=== PATIENT | female | born 1980 | race Caucasian/White ===

== ENCOUNTER → 2017-03-30 | Outpatient (CLI) | payer OTHER ==
[2017-03-30 11:16] LABS: Anisocytosis Moderate; Basophils % (A) 1 %; Eosinophils # (A) 0.1 k/uL (0-0.7); Eosinophils % (A) 2 %; HCT 40.3 % (34.0-46.0); HGB 12.3 gm/dL (11.4-16.0); Hypochromasia Moderate; Lymphocytes # (A) 1.4 k/uL (1.0-4.8); Lymphocytes % (A) 20 %; MCH 24.8 pg (25.0-35.0); MCHC 30.4 g/dL (31.0-37.0); MCV 81.7 fL (80.0-100.0); Mean Platelet Volume 7.3; Microcytosis Moderate; Monocytes # (A) 0.4 k/uL (0-1.0); Monocytes % (A) 6 %; Neutrophils # (A) 4.6 k/uL (1.3-7.7); Neutrophils % (A) 68 %; Platelet Count 345 k/uL (150-450); RBC 4.94 m/uL (3.80-5.40); RDW 21.2 % (11.5-15.5); WBC 6.8 k/uL (3.8-10.6)
[2017-03-30 11:48] LABS: ALT 23 U/L (9-52); AST 19 U/L (14-36); Albumin 4.3 g/dL (3.5-5.0); Alkaline Phosphatase 89 U/L (38-126); Anion Gap 12 mmol/L; Blood Urea Nitrogen 16 mg/dL (7-17); Calcium 9.8 mg/dL (8.4-10.2); Carbon Dioxide 27 mmol/L (22-30); Chloride 102 mmol/L (98-107); Cholesterol 221 mg/dL (<200); Glucose 90 mg/dL (74-99); HDL Cholesterol 77 mg/dL (40-60); LDL Cholesterol,Calculated 102 mg/dL (0-99); Potassium 3.8 mmol/L (3.5-5.1); Sodium 141 mmol/L (137-145); Total Bilirubin 0.5 mg/dL (0.2-1.3); Total Protein 7.6 g/dL (6.3-8.2); Triglycerides 210 mg/dL (<150)
== END | disposition home or self-care (01) ==
LOC: LABWHC1 09:46
PROVIDERS: ATTEND Nurse Practitioner
DX: D50.8 Other iron deficiency anemias (principal); E03.9 Hypothyroidism, unspecified; Z13.1 Encounter for screening for diabetes mellitus; Z13.220 Encounter for screening for lipoid disorders
CPT/HCPCS: 36415; 80053; 80061; 84443; 85025

== ENCOUNTER 2017-04-17 09:52 | Emergency (ER) | payer OTHER ==
[2017-04-17 10:21] VITALS: RESP 20
[2017-04-17] MEDS ORDERED: ONDANSETRON 4 MG/2 ML VIAL IVP STA (10:33)
[2017-04-17] MEDS ORDERED: SODIUM CHLORIDE 0.9% 1,000 ML IV ONE ×2 (10:33)
[2017-04-17] MEDS ORDERED: KETOROLAC 30 MG/ML 1 ML VIAL IVP STA (10:33)
[2017-04-17 11:37] LABS: Anisocytosis Slight; Basophils % (A) 0 %; Eosinophils # (A) 0.1 k/uL (0-0.7); Eosinophils % (A) 2 %; HCT 37.4 % (34.0-46.0); Hypochromasia Slight; Lymphocytes # (A) 1.5 k/uL (1.0-4.8); Lymphocytes % (A) 21 %; MCH 25.7 pg (25.0-35.0); MCHC 32.1 g/dL (31.0-37.0); MCV 80.2 fL (80.0-100.0); Mean Platelet Volume 6.7; Microcytosis Slight; Monocytes # (A) 0.4 k/uL (0-1.0); Monocytes % (A) 5 %; Neutrophils # (A) 4.9 k/uL (1.3-7.7); Neutrophils % (A) 69 %; Platelet Count 370 k/uL (150-450); Poikilocytosis Slight; RBC 4.66 m/uL (3.80-5.40); RDW 16.5 % (11.5-15.5); WBC 7.1 k/uL (3.8-10.6)
[2017-04-17 11:45] LABS: Anion Gap 10 mmol/L; Blood Urea Nitrogen 12 mg/dL (7-17); Calcium 9.3 mg/dL (8.4-10.2); Carbon Dioxide 27 mmol/L (22-30); Chloride 106 mmol/L (98-107); Glucose 84 mg/dL (74-99); Potassium 3.7 mmol/L (3.5-5.1); Sodium 143 mmol/L (137-145)
[2017-04-17 11:48] LABS: Partial Thromboplastin Time 23.5 sec (22.0-30.0); Prothrombin Time 9.5 sec (9.0-12.0)
--- NOTE | 2017-04-17 11:56 | ED ---
General Adult HPI - General Chief complaint: Vaginal Bleeding Stated complaint: Vag Bleeding Time Seen by Provider: 04/17/17 10:27 Source: patient Mode of arrival: ambulatory Limitations: no limitations - History of Present Illness Initial comments: This 36-year-old white female presents with a complaint of vaginal bleeding. She states that this started on 03/30/2017. It has progressively worsened. She states that she now is going through approximately 5 pads per hour. She has felt somewhat lightheaded, nauseated, dizzy, and fatigue. She apparently was sent in by her primary care physician for further evaluation. She was seen in the emergency department last week at [facility]. She states that she had a computed tomography scan of her abdomen and pelvis at that time which did not show any overt significant abnormalities. It apparently showed that she may have a very small ovarian cyst but she denies it showing any fibroids. She does not have an FUNCTIONAL MENTAL DISABILITY TEACHER at this time and has not followed up with FUNCTIONAL MENTAL DISABILITY TEACHER. She also complains of some midline lower abdominal pain/cramping. She denies any urinary symptoms. There has been no fevers or chills. She does relate that she has a history of iron deficiency anemia and will have iron infusions intravenously at times. - Related Data Home Medications Medication Instructions Recorded Confirmed Acetaminophen Tab [Tylenol Tab] 500 mg PO Q6HR PRN 04/17/17 04/17/17 Aspirin 325 mg PO QID PRN 04/17/17 04/17/17 Hydrochlorothiazide [Hydrodiuril] 25 mg PO DAILY 04/17/17 04/17/17 Levothyroxine Sodium [Synthroid] 100 mcg PO SUTUTHSA 04/17/17 04/17/17 Levothyroxine Sodium [Synthroid] 200 mcg PO MOWEFR 04/17/17 04/17/17 Naltrexone HCl/Bupropion HCl 2 tab PO BID 04/17/17 04/17/17 [Contrave ER 8-90 mg Tablet] Allergies Allergy/AdvReac Type Severity Reaction Status Date / Time No Known Allergies Allergy Verified 04/17/17 10:39 Review of Systems ROS Statement: Those systems with pertinent positive or pertinent negative responses have been documented in the HPI. ROS Other: All systems not noted in ROS Statement are negative. Past Medical History Past Medical History: Cancer Additional Past Medical History / Comment(s): cervical ca History of Any Multi-Drug Resistant Organisms: None Reported Past Surgical History: Tubal Ligation Past Psychological History: No Psychological Hx Reported Smoking Status: Never smoker Past Alcohol Use History: Rare Past Drug Use History: None Reported General Exam - General Exam Comments Initial Comments: GENERAL: The patient is well nourished and well hydrated. VITAL SIGNS: Heart rate, blood pressure, respiratory rate reviewed as recorded in nurse's notes. EYES: Pupils are round and reactive. Extraocular movements are intact. No conjunctival / lid redness or swelling. ENT: No external evidence of injury, swelling, or ecchymosis. Airway is patent. Throat is clear. NECK: Nontender. No swelling or evidence of injury. No subcutaneous emphysema. Trachea is midline. No thyroid mass. HEART: Regular rate and rhythm. Good peripheral pulses. LUNGS/CHEST: Breath sounds clear and equal bilaterally. No rales, rhonchi, or wheezes. No ecchymosis, subcutaneous emphysema, or tenderness. ABDOMEN: There is some mild tenderness in the midline lower abdomen. No palpable masses or organomegaly. No peritoneal signs. No abdominal wall swelling or ecchymosis. EXTREMITIES: No extremity tenderness. Normal muscle tone and function. No thoracolumbar tenderness. NEUROLOGIC: Sensation is grossly intact. Cranial nerve exam reveals face is symmetrical, tongue is midline, speech is clear. SKIN: No abrasions or ecchymosis is noted. No induration or masses noted. PSYCHIATRIC: Alert and oriented. Appropriate behavior and judgment. Limitations: no limitations Course Vital Signs 04/17/17 10:15 Temperature 98.1 F Pulse Rate 86 Respiratory 20 Rate Blood Pressure 121/70 O2 Sat by Pulse 100 Oximetry Medical Decision Making - Medical Decision Making The patient was seen and examined. All diagnostics were reviewed. An IV is started and she is hydrated. The laboratory is reviewed and appears that her hemoglobin is stable at 12. The remainder of the labs are unremarkable. The urinalysis does show significant hematuria. There is a significant amount of red blood cells and white blood cells. It is felt as though this is due to her heavy vaginal bleeding. There is no signs of a UTI. The pelvic ultrasound shows a right 2.7 cm ovarian cyst. The left ovary is not visualized. There is no evidence of torsion. The endometrium is normal in appearance and there is no evidence of fibroids. The case is discussed with Dr. Santos and she does not recommend starting her on any medication at this time but would like her to follow up in approximately 5 days. The patient appears stable for follow-up. She is feeling somewhat improved on recheck. She requests a work note for today and tomorrow and this is given. - Lab Data Result diagrams: 04/17/17 11:17 04/17/17 11:17 Lab Results 04/17/17 04/17/17 04/17/17 Range/Units 11:00 11:00 11:17 WBC 7.1 (3.8-10.6) k/uL RBC 4.66 (3.80-5.40) m/uL Hgb 12.0 (11.4-16.0) gm/dL Hct 37.4 (34.0-46.0) % MCV 80.2 (80.0-100.0) fL MCH 25.7 (25.0-35.0) pg MCHC 32.1 (31.0-37.0) g/dL RDW 16.5 H (11.5-15.5) % Plt Count 370 (150-450) k/uL Neutrophils % 69 % Lymphocytes % 21 % Monocytes % 5 % Eosinophils % 2 % Basophils % 0 % Neutrophils # 4.9 (1.3-7.7) k/uL Lymphocytes # 1.5 (1.0-4.8) k/uL Monocytes # 0.4 (0-1.0) k/uL Eosinophils # 0.1 (0-0.7) k/uL Basophils # 0.0 (0-0.2) k/uL Hypochromasia Slight Poikilocytosis Slight Anisocytosis Slight Microcytosis Slight PT (9.0-12.0) sec INR (<1.2) APTT (22.0-30.0) sec Sodium (137-145) mmol/L Potassium (3.5-5.1) mmol/L Chloride (98-107) mmol/L Carbon Dioxide (22-30) mmol/L Anion Gap mmol/L BUN (7-17) mg/dL Creatinine (0.52-1.04) mg/dL Est GFR (MDRD) Af Amer (>60 ml/min/1.73 sqM) Est GFR (MDRD) Non-Af (>60 ml/min/1.73 sqM) Glucose (74-99) mg/dL Calcium (8.4-10.2) mg/dL Urine Color Red Urine Appearance Bloody H (Clear) Urine pH 6.0 (5.0-8.0) Ur Specific [place] 1.016 (1.001-1.035) Urine Protein 1+ H (Negative) Urine Glucose (UA) Negative (Negative) Urine Ketones Trace H (Negative) Urine Blood Large H (Negative) Urine Nitrite Negative (Negative) Urine Bilirubin Negative (Negative) Urine Urobilinogen <2.0 (<2.0) mg/dL Ur Leukocyte Esterase Moderate (Negative) Urine RBC >182 H (0-5) /hpf Urine WBC >182 H (0-5) /hpf Urine HCG, Qual Not Detected (Not Detectd) Blood Type Blood Type Recheck Antibody Screen Spec Expiration Date 04/17/17 04/17/17 04/17/17 Range/Units 11:17 11:17 11:17 WBC (3.8-10.6) k/uL RBC (3.80-5.40) m/uL Hgb (11.4-16.0) gm/dL Hct (34.0-46.0) % MCV (80.0-100.0) fL MCH (25.0-35.0) pg MCHC (31.0-37.0) g/dL RDW (11.5-15.5) % Plt Count (150-450) k/uL Neutrophils % % Lymphocytes % % Monocytes % % Eosinophils % % Basophils % % Neutrophils # (1.3-7.7) k/uL Lymphocytes # (1.0-4.8) k/uL Monocytes # (0-1.0) k/uL Eosinophils # (0-0.7) k/uL Basophils # (0-0.2) k/uL Hypochromasia Poikilocytosis Anisocytosis Microcytosis PT 9.5 (9.0-12.0) sec INR 1.0 (<1.2) APTT 23.5 (22.0-30.0) sec Sodium 143 (137-145) mmol/L Potassium 3.7 (3.5-5.1) mmol/L Chloride 106 (98-107) mmol/L Carbon Dioxide 27 (22-30) mmol/L Anion Gap 10 mmol/L BUN 12 (7-17) mg/dL Creatinine 0.59 (0.52-1.04) mg/dL Est GFR (MDRD) Af Amer >60 (>60 ml/min/1.73 sqM) Est GFR (MDRD) Non-Af >60 (>60 ml/min/1.73 sqM) Glucose 84 (74-99) mg/dL Calcium 9.3 (8.4-10.2) mg/dL Urine Color Urine Appearance (Clear) Urine pH (5.0-8.0) Ur Specific [place] (1.001-1.035) Urine Protein (Negative) Urine Glucose (UA) (Negative) Urine Ketones (Negative) Urine Blood (Negative) Urine Nitrite (Negative) Urine Bilirubin (Negative) Urine Urobilinogen (<2.0) mg/dL Ur Leukocyte Esterase (Negative) Urine RBC (0-5) /hpf Urine WBC (0-5) /hpf Urine HCG, Qual (Not Detectd) Blood Type O Positive Blood Type Recheck No Antibody Screen NEGATIVE Spec Expiration Date 04/20/20172316 Disposition Clinical Impression: Dysfunctional uterine bleeding, Abdominal pain, Lightheadedness Disposition: HOME SELF-CARE Condition: Good Instructions: Dysfunctional Uterine Bleeding (ED), Abdominal Pain (ED) Referrals: Immanuel Howell MD [Primary Care Provider] - 1-2 days Ximena Santos MD [STAFF PHYSICIAN] - 04/23/17 Time of Disposition: 13:01
[2017-04-17 12:01] LABS: Appearance,Urine Bloody (Clear); Bilirubin,Urine Negative (Negative); Blood,Urine Large (Negative); Color,Urine Red; Glucose,Urine (UA) Negative (Negative); Ketones,Urine Trace (Negative); Protein,Urine 1+ (Negative); Specific Gravity,Urine 1.016 (1.001-1.035)
[2017-04-17 12:02] LABS: Leukocyte Esterase,Urine Moderate (Negative); Nitrite,Urine Negative (Negative); Urobilinogen,Urine <2.0 mg/dL (<2.0)
[2017-04-17 12:04] LABS: RBC,Urine >182 /hpf (0-5); WBC,Urine >182 /hpf (0-5)
--- NOTE | 2017-04-17 12:05 | US ---
EXAMINATION TYPE: US transvaginal DATE OF EXAM: 04/17/2017 COMPARISON: NONE CLINICAL HISTORY: vaginal bleeding and pelvic pain. TECHNIQUE: Transvaginal (TV) Date of LMP: 03/30/17 EXAM MEASUREMENTS: Uterus: 8.6 x 4.8 x 6.1 cm Endometrial Stripe: 0.6 cm Right Ovary: 3.8 x 2.7 x 2.5 cm Left Ovary: Obscured by overlying bowel gas 1. Uterus: multiple nabothians noted in cx, anteverted 2. Endometrium: wnl 3. Right Ovary: cyst measuring 2.7 x 2.6 x 2.4 4. Left Ovary: Obscured by overlying bowel gas Spectral, color and waveform doppler imaging shows good arterial and venous flow within the right o vary; there is no evidence for ovarian torsion on right. 5. Bilateral Adnexa: wnl 6. Posterior cul-de-sac: wnl IMPRESSION: 1. Right ovarian cystic lesion with internal echoes. Follow-up study recommended in 6 weeks. 2. Endometrial stripe and uterus are within normal limits.
[2017-04-17 13:11] VITALS: BP 120/56; PULSE 80; TEMP 98
== END 2017-04-17 13:10 | disposition home or self-care (01) ==
LOC: EC 09:52
DX: N83.201 Unspecified ovarian cyst, right side (principal); R42 Dizziness and giddiness; R11.0 Nausea; Z85.41 Personal history of malignant neoplasm of cervix uteri; Z79.899 Other long term (current) drug therapy
CPT/HCPCS: 36415; 86900; 86901; 80048; 85025; 85610; 85730; 86850; 81001; 81025; 93976; 76830; 99284; 96374; 96375; 96361 ×2; J2405; J1885

== ENCOUNTER 2017-07-27 23:27 | Emergency (ER) | payer OTHER ==
[2017-07-27] MEDS ORDERED: ONDANSETRON 4 MG/2 ML VIAL IVP STA (23:47)
[2017-07-27] MEDS ORDERED: MORPHINE SULFATE 4 MG/ML SYRINGE IV STA (23:47)
--- NOTE | 2017-07-27 23:51 | ED ---
Abdominal Pain HPI - General Chief Complaint: Abdominal Pain Stated Complaint: Lt flank pain, chest pain, back pain Time Seen by Provider: 07/27/17 23:33 Source: patient Mode of arrival: ambulatory Limitations: no limitations - History of Present Illness Initial Comments: This patient is a 37-year-old woman who complains of having left flank pain that is been going on she believes since Sunday. Patient states that the pain has become more intense and now she rates it severe. Pain is constant. It is located in the left upper quadrant but she states she also feels towards the back. She is indicating the area at the costal margin. The patient states that the pain gets worse when she touches that area. She denies relieving factors. She does note that she has had 2 episodes of vomiting today, she also has had loose stools. When questioned about urination, patient states that she does have some pain with urination. She has not noted any color change. Finally, the patient states she has noticed a lump which has developed just below the left breast and is tender. MD Complaint: abdominal pain -: days(s) Location: LUQ Radiation: L flank Migration to: no migration Severity: severe Quality: aching Consistency: constant Improves With: nothing Worsens With: movement, other (palpation) Associated Symptoms: nausea, vomiting, dysuria - Related Data Home Medications Medication Instructions Recorded Confirmed Hydrochlorothiazide [Hydrodiuril] 25 mg PO DAILY 04/17/17 07/27/17 Levothyroxine Sodium [Synthroid] 100 mcg PO SUTUTHSA 04/17/17 07/27/17 Previous Rx's Medication Instructions Recorded Hydrocodone/Acetaminophen [[place] 1 each PO Q6HR PRN #12 tab 07/28/17 5-325] Allergies Allergy/AdvReac Type Severity Reaction Status Date / Time No Known Allergies Allergy Verified 07/27/17 23:37 Review of Systems ROS Statement: Those systems with pertinent positive or pertinent negative responses have been documented in the HPI. ROS Other: All systems not noted in ROS Statement are negative. Constitutional: Denies: fever, chills Respiratory: Reports: cough. Denies: dyspnea, wheezes, hemoptysis Cardiovascular: Denies: chest pain, palpitations, edema Gastrointestinal: Reports: abdominal pain, nausea, vomiting, diarrhea. Denies: constipation, melena, hematochezia Genitourinary: Reports: dysuria. Denies: frequency, hematuria, discharge Musculoskeletal: Denies: back pain Skin: Denies: rash Neurological: Denies: headache Past Medical History Past Medical History: Cancer Additional Past Medical History / Comment(s): cervical ca History of Any Multi-Drug Resistant Organisms: None Reported Past Surgical History: Tubal Ligation Past Psychological History: No Psychological Hx Reported Smoking Status: Never smoker Past Alcohol Use History: Rare Past Drug Use History: None Reported General Exam Limitations: no limitations General appearance: alert, other (Patient appears in pain related to the left upper abdomen) Head exam: Present: atraumatic Respiratory exam: Present: normal lung sounds bilaterally, chest wall tenderness (There is tenderness along the ribs at the costal margin on the left) . Absent: respiratory distress, wheezes, rales, rhonchi, stridor Cardiovascular Exam: Present: normal rhythm, tachycardia, normal heart sounds. Absent: systolic murmur, diastolic murmur, rubs, gallop GI/Abdominal exam: Present: soft, tenderness (There is moderate tenderness to the left upper quadrant along the costal margin.), guarding, normal bowel sounds. Absent: distended, rebound, rigid, mass, pulsatile mass, hernia Extremities exam: Present: normal inspection, normal capillary refill. Absent: pedal edema, calf tenderness Back exam: Present: normal inspection. Absent: CVA tenderness (R), CVA tenderness (L) Neurological exam: Present: alert Skin exam: Present: warm, dry, intact, normal color. Absent: rash Course Vital Signs 07/27/17 07/28/17 23:29 00:59 Temperature 98.1 F 98.4 F Pulse Rate 123 H 90 Respiratory 20 16 Rate Blood Pressure 150/77 112/55 O2 Sat by Pulse 99 98 Oximetry Medical Decision Making - Lab Data Result diagrams: 07/27/17 23:40 07/27/17 23:40 Lab Results 07/27/17 07/27/17 07/27/17 Range/Units 23:40 23:40 23:40 WBC 8.3 (3.8-10.6) k/uL RBC 4.64 (3.80-5.40) m/uL Hgb 11.5 (11.4-16.0) gm/dL Hct 35.3 (34.0-46.0) % MCV 76.1 L (80.0-100.0) fL MCH 24.8 L (25.0-35.0) pg MCHC 32.6 (31.0-37.0) g/dL RDW 15.5 (11.5-15.5) % Plt Count 457 H (150-450) k/uL Neutrophils % 63 % Lymphocytes % 27 % Monocytes % 5 % Eosinophils % 2 % Basophils % 0 % Neutrophils # 5.2 (1.3-7.7) k/uL Lymphocytes # 2.2 (1.0-4.8) k/uL Monocytes # 0.4 (0-1.0) k/uL Eosinophils # 0.1 (0-0.7) k/uL Basophils # 0.0 (0-0.2) k/uL Microcytosis Slight D-Dimer (<0.60) mg/L FEU Sodium 146 H (137-145) mmol/L Potassium 3.5 (3.5-5.1) mmol/L Chloride 105 (98-107) mmol/L Carbon Dioxide 23 (22-30) mmol/L Anion Gap 18 mmol/L BUN 12 (7-17) mg/dL Creatinine 0.70 (0.52-1.04) mg/dL Est GFR (CKD-EPI)AfAm >90 (>60 ml/min/1.73 sqM) Est GFR (CKD-EPI)NonAf >90 (>60 ml/min/1.73 sqM) Glucose 91 (74-99) mg/dL Calcium 10.0 (8.4-10.2) mg/dL Total Bilirubin 0.3 (0.2-1.3) mg/dL AST 23 (14-36) U/L ALT 12 (9-52) U/L Alkaline Phosphatase 100 (38-126) U/L Troponin I <0.012 (0.000-0.034) ng/mL Total Protein 7.7 (6.3-8.2) g/dL Albumin 4.5 (3.5-5.0) g/dL Amylase 45 (30-110) U/L Lipase 93 (23-300) U/L Urine Color Urine Appearance (Clear) Urine pH (5.0-8.0) Ur Specific [place] (1.001-1.035) Urine Protein (Negative) Urine Glucose (UA) (Negative) Urine Ketones (Negative) Urine Blood (Negative) Urine Nitrite (Negative) Urine Bilirubin (Negative) Urine Urobilinogen (<2.0) mg/dL Ur Leukocyte Esterase (Negative) Urine HCG, Qual (Not Detectd) 07/27/17 07/27/17 07/27/17 Range/Units 23:40 23:40 23:40 WBC (3.8-10.6) k/uL RBC (3.80-5.40) m/uL Hgb (11.4-16.0) gm/dL Hct (34.0-46.0) % MCV (80.0-100.0) fL MCH (25.0-35.0) pg MCHC (31.0-37.0) g/dL RDW (11.5-15.5) % Plt Count (150-450) k/uL Neutrophils % % Lymphocytes % % Monocytes % % Eosinophils % % Basophils % % Neutrophils # (1.3-7.7) k/uL Lymphocytes # (1.0-4.8) k/uL Monocytes # (0-1.0) k/uL Eosinophils # (0-0.7) k/uL Basophils # (0-0.2) k/uL Microcytosis D-Dimer 0.41 (<0.60) mg/L FEU Sodium (137-145) mmol/L Potassium (3.5-5.1) mmol/L Chloride (98-107) mmol/L Carbon Dioxide (22-30) mmol/L Anion Gap mmol/L BUN (7-17) mg/dL Creatinine (0.52-1.04) mg/dL Est GFR (CKD-EPI)AfAm (>60 ml/min/1.73 sqM) Est GFR (CKD-EPI)NonAf (>60 ml/min/1.73 sqM) Glucose (74-99) mg/dL Calcium (8.4-10.2) mg/dL Total Bilirubin (0.2-1.3) mg/dL AST (14-36) U/L ALT (9-52) U/L Alkaline Phosphatase (38-126) U/L Troponin I (0.000-0.034) ng/mL Total Protein (6.3-8.2) g/dL Albumin (3.5-5.0) g/dL Amylase (30-110) U/L Lipase (23-300) U/L Urine Color Colorless Urine Appearance Clear (Clear) Urine pH 5.5 (5.0-8.0) Ur Specific [place] 1.003 (1.001-1.035) Urine Protein Negative (Negative) Urine Glucose (UA) Negative (Negative) Urine Ketones Negative (Negative) Urine Blood Negative (Negative) Urine Nitrite Negative (Negative) Urine Bilirubin Negative (Negative) Urine Urobilinogen <2.0 (<2.0) mg/dL Ur Leukocyte Esterase Negative (Negative) Urine HCG, Qual Not Detected (Not Detectd) Disposition Clinical Impression: Left-sided chest wall pain, Cyst Disposition: HOME SELF-CARE Condition: Good Instructions: Cyst (ED) Prescriptions: Hydrocodone/Acetaminophen [[place] 5-325] 1 each PO Q6HR PRN #12 tab PRN Reason: Pain Is patient prescribed a controlled substance at d/c from ED?: Yes If prescribed controlled substance>3 days was MAPS reviewed?: Yes When asked, does pt state using other controlled substances?: No Referrals: Immanuel Howell MD [Primary Care Provider] - 1-2 days Celestino James MD [STAFF PHYSICIAN] - 1-2 days
[2017-07-27 23:58] LABS: Basophils % (A) 0 %; Eosinophils # (A) 0.1 k/uL (0-0.7); Eosinophils % (A) 2 %; HCT 35.3 % (34.0-46.0); HGB 11.5 gm/dL (11.4-16.0); Lymphocytes # (A) 2.2 k/uL (1.0-4.8); Lymphocytes % (A) 27 %; MCH 24.8 pg (25.0-35.0); MCHC 32.6 g/dL (31.0-37.0); MCV 76.1 fL (80.0-100.0); Mean Platelet Volume 6.8; Microcytosis Slight; Monocytes # (A) 0.4 k/uL (0-1.0); Monocytes % (A) 5 %; Neutrophils # (A) 5.2 k/uL (1.3-7.7); Neutrophils % (A) 63 %; Platelet Count 457 k/uL (150-450); RBC 4.64 m/uL (3.80-5.40); RDW 15.5 % (11.5-15.5); WBC 8.3 k/uL (3.8-10.6)
[2017-07-27 23:59] LABS: Appearance,Urine Clear (Clear); Bilirubin,Urine Negative (Negative); Blood,Urine Negative (Negative); Color,Urine Colorless; Glucose,Urine (UA) Negative (Negative); Ketones,Urine Negative (Negative); Leukocyte Esterase,Urine Negative (Negative); Nitrite,Urine Negative (Negative); PH, Urine 5.5 (5.0-8.0); Protein,Urine Negative (Negative); Specific Gravity,Urine 1.003 (1.001-1.035); Urobilinogen,Urine <2.0 mg/dL (<2.0)
[2017-07-28 00:08] LABS: ALT 12 U/L (9-52); AST 23 U/L (14-36); Albumin 4.5 g/dL (3.5-5.0); Alkaline Phosphatase 100 U/L (38-126); Amylase 45 U/L (30-110); Anion Gap 18 mmol/L; Blood Urea Nitrogen 12 mg/dL (7-17); Carbon Dioxide 23 mmol/L (22-30); Chloride 105 mmol/L (98-107); Glucose 91 mg/dL (74-99); Lipase 93 U/L (23-300); Potassium 3.5 mmol/L (3.5-5.1); Sodium 146 mmol/L (137-145); Total Bilirubin 0.3 mg/dL (0.2-1.3); Total Protein 7.7 g/dL (6.3-8.2)
[2017-07-28] MEDS ORDERED: RX INFO: IV CONTRAST WAS GIVEN 1 EACH MISC MISCELLANE PRN (00:26)
[2017-07-28 01:00] VITALS: RESP 16
--- NOTE | 2017-07-28 01:20 | CT ---
EXAMINATION TYPE: CT abdomen pelvis w con DATE OF EXAM: 07/28/2017 COMPARISON: NONE HISTORY: abdominal pain X [address] DLP: 1095.20 mGycm Automated exposure control for dose reduction was used. TECHNIQUE: Helical acquisition of images was performed from the lung bases through the pelvis. CONTRAST: Performed without Oral Contrast and with IV Contrast, patient injected with 100 mL of Isovue 300. FINDINGS: Lung bases are clear. There is no pleural effusion. Heart size is normal. Liver spleen pancreas appear normal. Gallbladder appears normal. Bile ducts are not dilated. There is no adrenal mass. Kidneys show satisfactory contrast opacification. There is no hydronephrosi s. There is no retroperitoneal adenopathy. Ureters are not dilated. There is no ascites. Uterus is anteverted. There is a 3.5 cm cyst on the right ovary. There are clips apparently from tuba l ligation. I see no intestinal wall thickening. There are no dilated loops. Appendix appears normal. Bladder distends smoothly. There is no free fluid in the pelvis. Bony structures are intact. IMPRESSION: THERE IS A RIGHT OVARIAN CYST. OTHERWISE NEGATIVE CT SCAN OF THE ABDOMEN AND PELVIS. NORMAL APPENDIX.
[2017-07-28] MEDS ORDERED: MORPHINE SULFATE 4 MG/ML SYRINGE IV STA (01:50)
[2017-07-28 02:03] VITALS: PULSE 77; TEMP 98
[2017-07-28 02:10] VITALS: BP 125/75
== END 2017-07-28 02:10 | disposition home or self-care (01) ==
LOC: EC 23:27
DX: N83.201 Unspecified ovarian cyst, right side (principal); R07.89 Other chest pain; Z85.41 Personal history of malignant neoplasm of cervix uteri; Z79.899 Other long term (current) drug therapy
CPT/HCPCS: 36415; 85379; 80053; 82150; 83690; 84484; 85025; 81003; 81025; 74177; 99284; 96374; 96375; 96376; J2270 ×2; J2405; Q9967

== ENCOUNTER → 2018-06-27 | Outpatient (CLI) | payer OTHER ==
--- NOTE | 2018-07-09 08:57 | HM ---
HOLTER MONITOR REPORT This is 72-hour Holter. Patient in her diary had several episodes when she felt some fluttering in her chest. Predominant rhythm appears to be sinus with isolated PVCs. Average heart rate on day 1 was 98 beats per minute and average heart rate for all 3 days was about 98 beats per minute and heart rate ranged from 56 to 145 beats per minute. Rare isolated PVCs were noted. There was no evidence of any SVT, VT or any bradyarrhythmia. Sinus tachycardia seems to be the predominant rhythm. At that time, patient complained of having some sensation of racing heart. She had a sinus tach at 136 beats per minute. On other occasions when she complained of some pounding in the chest also, she had sinus rhythm at a rate of 107 beats per minute. FINAL IMPRESSION: Problem with sinus with sinus tachycardia with a correlation of some sinus tachycardia when patient felt her heart racing. There were rare isolated PACs and PVCs were noted and there was no bradyarrhythmia. MMODL / IJN: [id number] /
== END ==
LOC: RADECHMAIN 11:40
PROVIDERS: ATTEND Family Medicine
DX: R00.0 Tachycardia, unspecified (principal)
CPT/HCPCS: 93225; 93226

== ENCOUNTER → 2018-11-11 | Outpatient (CLI) | payer OTHER ==
--- NOTE | 2018-11-11 13:20 | MM ---
Reason for exam: screening (asymptomatic). Baseline mammogram. History: Family history of breast cancer in maternal grandmother at age 38. Physical Findings: Nurse Summary: 1cm nodule in the right breast at 9 and 10 o'clock (nurse mj). MG 3D Screening Mammo W/Cad Bilateral CC and MLO view(s) were taken. The breast tissue is heterogeneously dense. This may lower the sensitivity of mammography. Bilateral breast nodularity, two largest on the right upper outer quadrant measure 1.9cm and 1.8cm corresponding to nurse palpated areas. These results were verbally communicated with the patient and result sheet given to the patient on 11/11/18. ASSESSMENT: Incomplete: need additional imaging evaluation, BI-RAD 0 RECOMMENDATION: Ultrasound of both breasts.
--- NOTE | 2018-11-11 13:27 | USB ---
Reason for exam: additional evaluation requested from abnormal screening. History: Family history of breast cancer in maternal grandmother at age 38. US Breast Workup JENNIFER Right complete breast ultrasound includes all four quadrants, the retroareolar region and axilla. Finding demonstrates a 0.2 x 0.4 x 0.2cm oval, cystic cluster at 1 o'clock, a 0.4 x 0.5 x 0.4cm oval, cystic lesion at 9 o'clock and a 0.3 x 0.3 x 0.2cm oval, cystic lesion at 10 o'clock BB. Left complete breast ultrasound includes all four quadrants, the retroareolar region and axilla. Finding demonstrates a 0.8 x 1.1 x 1.0cm oval, thick walled, cystic lesion at 2 o'clock, a 0.9 x 0.7 x 0.4cm oval, cystic lesion at 10 o'clock, a 0.4 x 0.4 x 0.4cm oval, cystic cluster at 11 o'clock and multiple axilla nodes with the largest measuring 2.4 x 3.3 x 1.6cm, these show maintained fatty hilum and mild cortical thickening up to 4mm. Nurse palpated areas likely relate to areas of dense tissue. These results were verbally communicated with the patient and result sheet given to the patient on 11/11/18. ASSESSMENT: Benign, BI-RAD 2 RECOMMENDATION: Ultrasound of the left breast in 3 months. Manage on a clinical basis with regard to mildly enlarged left axillary nodes which may be reactive to some upstream infectious/inflammatory process. 3 month follow up ultrasound recommended.
== END | disposition home or self-care (01) ==
LOC: RADMAMWWP 09:33
PROVIDERS: ATTEND Obstetrics & Gynecology
DX: Z12.31 Encounter for screening mammogram for malignant neoplasm of breast (principal)
CPT/HCPCS: 77063; 77067

== ENCOUNTER → 2018-11-11 | Outpatient (CLI) | payer OTHER ==
[2018-11-11 13:12] LABS: Anisocytosis Marked; Basophils # (A) 0.1 k/uL (0-0.2); Basophils % (A) 1 %; Eosinophils # (A) 0.2 k/uL (0-0.7); Eosinophils % (A) 2 %; HGB 12.1 gm/dL (11.4-16.0); Hypochromasia Marked; Lymphocytes # (A) 1.5 k/uL (1.0-4.8); Lymphocytes % (A) 23 %; MCH 24.8 pg (25.0-35.0); MCV 80.1 fL (80.0-100.0); Mean Platelet Volume 6.8; Microcytosis Moderate; Monocytes # (A) 0.4 k/uL (0-1.0); Monocytes % (A) 5 %; Neutrophils # (A) 4.3 k/uL (1.3-7.7); Neutrophils % (A) 66 %; Platelet Count 354 k/uL (150-450); Poikilocytosis Slight; RBC 4.87 m/uL (3.80-5.40); RDW 24.8 % (11.5-15.5); WBC 6.6 k/uL (3.8-10.6)
== END | disposition home or self-care (01) ==
LOC: LABPAT 12:22
PROVIDERS: ATTEND Obstetrics & Gynecology
DX: Z01.812 Encounter for preprocedural laboratory examination (principal); N92.0 Excessive and frequent menstruation with regular cycle
CPT/HCPCS: 83001; 83002; 84146; 85025

== ENCOUNTER 2018-11-19 06:41 | Day surgery (SDC) | payer OTHER ==
[2018-11-12 09:43] VITALS: BMI 34.5
--- NOTE | 2018-11-18 16:26 | P.HPOB ---
History of Present Illness H&P Date: 11/18/18 Chief Complaint: Dysfunctional uterine bleeding Kristy is a 38-year-old female with heavy vaginal bleeding and irregular bleeding for last 5 years. Symptoms have been worsening and she is required iron transfusions intermittently for same. She had presented been discussed a NovaSure ablation but at that time she was unable to follow through with the surgery she is now scheduled for D&C with hysteroscopy and NovaSure to try and eliminate the bleeding and verified there is no potential risk for hyperplastic cells. Risks/benefits/alternatives to this procedure were discussed with the patient in detail and all questions were answered for her prior to proceeding to the operating room. On physical exam vital signs are stable and afebrile. Heart regular, lungs clear, extremities without pain. Abdomen soft nontender positive bowel sounds are noted. Pelvic exam is generally unremarkable. Assessment dysfunctional bleeding Plan D&C with hysteroscopy NovaSure Past Medical History Past Medical History: Cancer, Thyroid Disorder Additional Past Medical History / Comment(s): cervical ca, hx severe anemia receives iron infusions History of Any Multi-Drug Resistant Organisms: None Reported Past Surgical History: Tubal Ligation Past Anesthesia/Blood Transfusion Reactions: Postoperative Nausea & Vomiting (PONV) Smoking Status: Never smoker - Past Family History Father Family Medical History: Cancer Additional Family Medical History / Comment(s): leukemia Medications and Allergies Home Medications Medication Instructions Recorded Confirmed Type Hydrochlorothiazide [Hydrodiuril] 25 mg PO DAILY 04/17/17 11/12/18 History Levothyroxine Sodium [Synthroid] 100 mcg PO SUTUTHSA 04/17/17 11/12/18 History Mirabegron [Myrbetriq] 50 mg PO DAILY 11/12/18 11/12/18 History buPROPion XL [Wellbutrin Xl] 150 mg PO DAILY 11/12/18 11/12/18 History Allergies Allergy/AdvReac Type Severity Reaction Status Date / Time No Known Allergies Allergy Verified 11/12/18 09:34 Exam Osteopathic Statement: *. No significant issues noted on an osteopathic structural exam other than those noted in the History and Physical/Consult.
[~2018-11-19 06:41] MED LIST: DEXAMETHASONE SOD PHOSPHATE 10 MG/ML 1 ML VIAL IV ONE; HYDROmorphone 0.5 MG/0.5 ML SYRINGE IVP PRN; LACTATED RINGERS 1,000 ML IV SCH; MIDAZOLAM 2 MG/2 ML VIAL IV PRN; ONDANSETRON 4 MG/2 ML VIAL IVP ONE; Pre Op ABX Message 1 EACH MISC MISCELLANE ONE; SCOPOLAMINE 1.5MG/72HR PATCH TRANSDERM ONE
[2018-11-19] MEDS ORDERED: KETOROLAC 30 MG/ML 1 ML VIAL ONE (07:56)
[2018-11-19] MEDS ORDERED: PROPOFOL 10 MG/ML 20 ML VIAL IV ONE (07:56)
[2018-11-19] MEDS ORDERED: fentaNYL (PF) 50 MCG/ML 2 ML AMP ONE (07:56)
[2018-11-19] MEDS ORDERED: MIDAZOLAM 2 MG/2 ML VIAL ONE (07:56)
[2018-11-19] MEDS ORDERED: SUCCINYLCHOLINE CHLORIDE 100 MG/5 ML SYR IV ONE (07:56)
[2018-11-19] MEDS ORDERED: LIDOCAINE 1% INJ 10MG/ML (20 ML MDV) ONE (07:56)
--- NOTE | 2018-11-19 08:31 | P.OP ---
Date of Procedure: 11/19/18 Preoperative Diagnosis: Dysfunctional uterine bleeding Postoperative Diagnosis: Same Procedure(s) Performed: D&C was hysteroscopy and NovaSure Anesthesia: MENDOZA Surgeon: Manoj Garcia Estimated Blood Loss (ml): 5 Pathology: other (Uterine curettings) Condition: stable Disposition: floor Operative Findings: Tissue pathology pending Description of Procedure: Kristy was taken to the operating suite where general anesthetic was found be adequate. She was prepped and draped in the normal sterile fashion and placed in dorsal lithotomy position. Initially a weighted speculum was inserted into the vagina and the anterior lip of cervix identified and grasped with an Allis clamp. Cervix was then dilated and sounded to 8 cm. Following this, camera was inserted with minimal pathology noted. Camera was then removed and sharp curettings of endometrium were obtained. Once this was completed NovaSure system was inserted with length of 4 and a width of 2.5 it was tested and once it passes patency test it was enabled and didn't burn for 32 seconds. At conclusion the burn incident was removed and camera was reinserted with good burn noted. All incidents were then removed. Sponge, lap, needle counts were all correct 2. Patient was then taken to the recovery room in stable and satisfactory condition. Plan - Discharge Summary Discharge Rx Participant: Yes New Discharge Prescriptions: New Ibuprofen [Motrin] 600 mg PO Q6HR PRN #30 tab PRN Reason: Pain No Action Levothyroxine Sodium [Synthroid] 100 mcg PO SUTUTHSA Hydrochlorothiazide [Hydrodiuril] 25 mg PO DAILY buPROPion XL [Wellbutrin Xl] 150 mg PO DAILY Mirabegron [Myrbetriq] 50 mg PO DAILY Discharge Medication List Hydrochlorothiazide [Hydrodiuril] 25 mg PO DAILY 04/17/17 [History] Levothyroxine Sodium [Synthroid] 100 mcg PO SUTUTHSA 04/17/17 [History] Mirabegron [Myrbetriq] 50 mg PO DAILY 11/12/18 [History] buPROPion XL [Wellbutrin Xl] 150 mg PO DAILY 11/12/18 [History] Ibuprofen [Motrin] 600 mg PO Q6HR PRN #30 tab 11/19/18 [Rx] Follow up Appointment(s)/Referral(s): Manoj Garcia DO [Doctor of Osteopathic Medicine] - 2 Weeks Activity/Diet/Wound Care/Special Instructions: No heavy lifting, limit stairs and driving today and complete pelvic rest for next few days. If any high temperatures, heavy bleeding, or severe pain call my office Discharge Disposition: HOME SELF-CARE
[2018-11-19 08:43] VITALS: TEMP 97.9
[2018-11-19 09:05] VITALS: RESP 16
[2018-11-19] MEDS ORDERED: LACTATED RINGERS 1,000 ML IV ONE ×2 (09:08→10:07)
[2018-11-19 10:09] VITALS: BP 113/75; PULSE 56
== END 2018-11-19 10:58 | disposition home or self-care (01) ==
LOC: OR 06:41
PROVIDERS: ATTEND Obstetrics & Gynecology
DX: N84.0 Polyp of corpus uteri (principal); N92.0 Excessive and frequent menstruation with regular cycle; N93.8 Other specified abnormal uterine and vaginal bleeding; Z85.41 Personal history of malignant neoplasm of cervix uteri; E07.9 Disorder of thyroid, unspecified; D64.9 Anemia, unspecified; Z98.51 Tubal ligation status; Z80.6 Family history of leukemia; Z79.890 Hormone replacement therapy; Z79.899 Other long term (current) drug therapy
CPT/HCPCS: 81025; 88305; 58563; J2250; J1100; J2405; J2001; J3010; J1885; J0330; J2704; J1170